=== PATIENT | female | born 1945 | race Caucasian/White ===

== ENCOUNTER 2016-11-30 11:04 | Emergency (ER) | payer MEDICARE, BC ==
[2016-11-30 11:35] VITALS: BP 131/85
--- NOTE | 2016-11-30 12:53 | ED ---
Back Pain - HPI Summary HPI Summary: PATIENT WITH A HISTORY OF SCOLIOSIS PRESENTS TO WITH CC OF LEFT SIDED MID BACK PAIN WHICH BEGAN YESTERDAY SPONTANEOUSLY. SHE DENIES INJURY. SHE STATES THE PAIN FEELS LIKE A TIGHTNESS AND IS WORSE WITH SITTING OR STANDING UP FROM A CHAIR. PAIN IS BETTER WITH STRETCHING OUT THE BACK MUSCLES IN CURVING THE SPINE LEANING FORWARD. SHE IS SCHEDULED TO GO TO FOR HER SCOLIOSIS THIS AFTERNOON BUT DID NOT THINK IT WAS A GOOD IDEA, AND INSTEAD CAME TO . SHE IS CONCERNED BECAUSE HER SISTER HAD A TUMOR IN HER BACK. SHE IS A PATIENT OF DR. KING, HAS HIGH CHOLESTEROL AND EPISODES OF VERTIGO BUT IS OTHERWISE HEALTHY. DENIES OTHER SIGNIFICANT CARDIAC HISTORY OR SOB. - History of Current Complaint Chief Complaint: UCBackPain Stated Complaint: LEFT SIDE AND BACK PAIN Time Seen by Provider: 11/30/16 12:26 Hx Obtained From: Patient Onset/Duration: Gradual Onset Onset/Duration: Started Days Ago Timing: Intermittent Back Pain Location: Is Discrete @ - LEFT SIDED MID BACK PAIN Pain Intensity: 5 Pain Scale Used: 0-10 Numeric Character: Dull, Aching Aggravating Symptom(s): Movement, Nothing - SITTING Alleviating Symptom(s): Rest, Position Associated Signs And Symptoms: Positive: Negative - Risk Factors AAA Risk Factors: Negative TAD Risk Factors: Negative Cauda Equina Risk Factors: Negative Epidural Abscess Risk Factors: Negative - Allergies/Home Medications Allergies/Adverse Reactions: Allergies Allergy/AdvReac Type Severity Reaction Status Date / Time Chlorpheniramine Allergy Tachycardia Verified 11/30/16 11:36 [From Decongest] Hydrocodone [From Vicodin] Allergy Unknown Verified 11/30/16 11:36 Reaction Details Phenylpropanolamine Allergy Tachycardia Verified 11/30/16 11:36 [From Decongest] Home Medications: Home Medications Atorvastatin* [Lipitor 10 MG*] 1 tab PO DAILY 11/30/16 [History Confirmed ] PMH/Surg Hx/FS Hx/Imm Hx Previously Healthy: Yes Endocrine/Hematology History: Denies: Hx Diabetes Cardiovascular History: Reports: Hx Hypercholesterolemia, Hx Hypertension Denies: Hx Pacemaker/ICD Respiratory History: Reports: Hx Asthma, Hx Chronic Obstructive Pulmonary Disease (COPD) Musculoskeletal History: Reports: Hx Arthritis, Hx Osteoporosis, Hx Scoliosis, Other Musculoskeletal History - SCOLIOSIS Sensory History: Reports: Hx Contacts or Glasses - GLASSES Denies: Hx Cataracts, Hx Hearing Aid Opthamlomology History: Reports: Hx Contacts or Glasses - GLASSES Denies: Hx Cataracts Psychiatric History: Reports: Hx Anxiety, Hx Depression, Hx Panic Disorder - Cancer History Hx Chemotherapy: No Hx Radiation Therapy: No - Surgical History Surgery Procedure, Year, and Place: APPY 70S,HYSTERECTOMY 70S, BONE SPURS REMOVED FROM FEET [facility]; BILATERAL GREAT TOE STRAIGHTENING X3; HERNIA REPAIR [facility], LEFT KNEE ARTHROSCOPY X 2 [facility], BREAST BIOPSY, LEFT SHOULDER ARTHROSCOPY. total left shoulder replacement Hx Anesthesia Reactions: No - Immunization History Date of Tetanus Vaccine: current Date of Influenza Vaccine: 2015 Hx Pertussis Vaccination: No Immunizations Up to Date: Unable to Obtain/Confirm Infectious Disease History: No Infectious Disease History: Denies: Traveled Outside the [place] in Last 30 Days - Family History Known Family History: Positive: Cardiac Disease, Other - CVA; EtOH addiction - Social History Occupation: Unemployed Lives: Alone Alcohol Use: None Hx Substance Use: No Substance Use Type: Reports: None Smoking Status (MU): Former Smoker Type: Cigarettes Length of Time of Smoking/Using Tobacco: 35 YRS Review of Systems Constitutional: Negative Eyes: Negative Cardiovascular: Negative Respiratory: Negative Positive: Myalgia - LEFT SIDED BACK PAIN Skin: Negative Positive: Anxious All Other Systems Reviewed And Are Negative: Yes Physical Exam Triage Information Reviewed: Yes Vital Signs On Initial Exam: Initial Vitals Temp Pulse Resp BP Pulse Ox 97.8 F 65 16 131/85 97 11/30/16 11:26 11/30/16 11:26 11/30/16 11:26 11/30/16 11:26 11/30/16 11:26 Vital Signs Reviewed: Yes Appearance: Positive: Well-Appearing, Well-Nourished Skin: Positive: Warm, Skin Color Reflects Adequate Perfusion Eyes: Positive: Normal, DENI Neck: Positive: Supple, No Lymphadenopathy Respiratory/Lung Sounds: Positive: Clear to Auscultation, Breath Sounds Present Cardiovascular: Positive: RRR, Pulses are Symmetrical in both Upper and Lower Extremities Musculoskeletal: Positive: Pain @ - LEFT SIDED MID BACK ON LIGHT PALPATION, WHICH IMPROVES WITH DEEP PALPATION, Other - ROM INTACT Neurological: Positive: Sensory/Motor Intact, Alert, Oriented to Person Place, Time, Speech Normal Psychiatric: Positive: Normal Diagnostics - Vital Signs Vital Signs Temp Pulse Resp BP Pulse Ox 11/30/16 11:26 97.8 F 65 16 131/85 97 - Laboratory Lab Statement: Any lab studies that have been ordered have been reviewed, and results considered in the medical decision making process. Back Pain Course/Dx - Course Course Of Treatment: PATIENT PRESENTS WITH LEFT SIDED MID BACK PAIN WITH NO ASSOCIATED TRAUMA. HISTORY OF SCOLIOSIS WITH LONG HISTORY OF BACK PAIN EPISODES. SHE IS CURRENTLY SEEING PT FOR THIS. DENIES CHEST PAIN OR SOB. EKG REVIEWED AND COMPARED TO PREVIOUS EKG - READ NO SIGNIFICANT CHANGE. SHE IS ABLE TO LOCATE THE PAIN WITH LIGHT PALPATION, BUT PAIN IMPROVES WITH DEEP PALPATION. PAIN DOES NOT RADIATE. PROVIDER EDUCATED PATIENT WITH MUSCLE STRAINS AND RECOMMENDED IBUPROFEN AND MASSAGE THERAPY FOR MUSCULAR TIGHTNESS. SHE STATES SHE WILL TRY ALEVE AND USE THE MOIST HEAT, BUT IS UNABLE TO AFFORD MASSAGE THERAPY. EXERCISES WERE SHOWN TO THE PATIENT TO IMPROVE SYMPTOMS. SHE IS TO SEE DR. ROTH IF SYMPTOMS PERSIST. PATIENT IS OK WITH PLAN. - Diagnoses Differential Diagnosis/HQI/PQRI: Positive: Fracture, Herniated Disc, Strain, Sprain Provider Diagnoses: Muscle strain Discharge - Discharge Plan Condition: Stable Disposition: HOME Patient Education Materials: Muscle Strain (ED), Musculoskeletal Pain (ED) Referrals: Diego Roth MD [Primary Care Provider] - Additional Instructions: Moist heat to the area several times per day Massage Therapy will help break up the muscle Aleve or Ibuprofen for back pain Tennis ball on the wall with leaning into the ball where the muscle pain is most prominent. If symptoms become worse, please see Dr. Roth for a follow up Continue with PT in 3-4 days.
== END 2016-11-30 13:08 | disposition home or self-care (01) ==
LOC: UCEAST 11:04
DX: S29.012A Strain of muscle and tendon of back wall of thorax, initial encounter (principal); X58.XXXA Exposure to other specified factors, initial encounter; Y93.9 Activity, unspecified; Y92.9 Unspecified place or not applicable; E78.00 Pure hypercholesterolemia, unspecified; I10 Essential (primary) hypertension; J45.909 Unspecified asthma, uncomplicated; J44.9 Chronic obstructive pulmonary disease, unspecified; F41.8 Other specified anxiety disorders; Z90.710 Acquired absence of both cervix and uterus; Z96.612 Presence of left artificial shoulder joint; Z88.5 Allergy status to narcotic agent; Z88.8 Allergy status to other drugs, medicaments and biological substances; Z87.891 Personal history of nicotine dependence
CPT/HCPCS: 93005; 99211; G0463